=== PATIENT | female | born 1990 | race Caucasian/White ===

== ENCOUNTER 2017-04-20 13:40 | Emergency (ER) | payer BC ==
[2017-04-20 13:45] VITALS: BP 127/84
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
[2017-04-20 14:34] VITALS: PULSE 108; RESP 20; TEMP 98.3
== END 2017-04-20 14:59 | disposition home or self-care (01) ==
LOC: EC 13:40
DX: J70.5 Respiratory conditions due to smoke inhalation (principal); Z88.1 Allergy status to other antibiotic agents; X02.1XXA Exposure to smoke in controlled fire in building or structure, initial encounter; Y92.009 Unspecified place in unspecified non-institutional (private) residence as the place of occurrence of the external cause; Y92.039 Unspecified place in apartment as the place of occurrence of the external cause
CPT/HCPCS: 71046; 99283